=== PATIENT | female | born 1955 | race Caucasian/White ===

== ENCOUNTER 2016-04-24 17:10 | Emergency (ER) | payer OTHER ==
[~2016-04-24] VITALS: Ht 167.6 cm; Wt 72.6 kg
[2016-04-24 17:58] LABS: BASOPHILS # (AUTO) 0.1 /CMM (0.0-0.2); BASOPHILS % (AUTO) 1.1 % (0.0-2.0); DIFF TOTAL % 100 %; EOSINOPHILS # (AUTO) 0.2 /CMM (0.0-0.7); EOSINOPHILS % (AUTO) 3.1 % (0.0-6.0); HEMATOCRIT 40 % (33-45); HEMOGLOBIN 13.3 g/dL (11.5-14.8); LYMPHOCYTES # (AUTO) 3.1 /CMM (0.8-4.8); LYMPHOCYTES % (AUTO) 43.3 % (20.0-44.0); MEAN CORPUSCULAR HEMOGLOBIN 28 PG (26.0-33.0); MEAN CORPUSCULAR HGB CONC 33 g/dl (31.0-36.0); MEAN CORPUSCULAR VOLUME 85 fL (82-100); MONOCYTES # (AUTO) 0.5 /CMM (0.1-1.30); NEUTROPHILS # (AUTO) 3.3 /CMM (1.8-8.9); NEUTROPHILS % (AUTO) 45.5 % (43.0-81.0); PLATELET COUNT (AUTO) 227 /CMM (150-450); RED BLOOD CELL COUNT(AUTO) 4.69 MIL/uL (4.0-5.2); WHITE BLOOD COUNT (AUTO) 7.2 K/uL (4.3-11.0)
[2016-04-24] MEDS ORDERED: NITROGLYCERIN PACKET 1 GM PACKET TD ONE (18:00)
[2016-04-24] MEDS ORDERED: ASPIRIN 325 MG TABLET PO ONE (18:00)
[2016-04-24] MEDS ORDERED: NITROGLYCERIN PACKET 1 GM PACKET ONE (18:07)
[2016-04-24] MEDS ORDERED: ASPIRIN 325 MG TABLET ONE (18:07)
[2016-04-24 18:09] LABS: ANION GAP 9 (5-14); CARBON DIOXIDE 29 mmol/L (21-32); CHLORIDE 106 mmol/L (98-107); CREATININE 0.8 mg/dL (0.6-1.3); GFR 73 mL/min (>60); GLUCOSE 157 mg/dL (74-106); POTASSIUM 4.4 mmol/L (3.5-5.1); SODIUM SERUM 140 mmol/L (136-145); UREA NITROGEN, BLOOD 20 mg/dL (7-18)
[2016-04-24 18:11] LABS: INR 0.94 (0.87-1.13); PROTHROMBIN TIME 9.9 SECS (9.5-12.7)
[2016-04-24 18:14] VITALS: BP 141/77
[2016-04-24 18:19] LABS: TROPONIN I < 0.017 ng/mL (0.00-0.056)
[2016-04-24] MEDS ORDERED: METF500T4 PO (18:44)
[2016-04-24] MEDS ORDERED: SITA50TA PO (18:44)
[2016-04-24] MEDS ORDERED: ATOR10TA PO (18:44)
[2016-04-24] MEDS ORDERED: AMLO5TAB2 PO (18:44)
[2016-04-24] MEDS ORDERED: HYDROCODONE/APAP 5/325MG 1 EACH TABLET ONE (19:50)
[2016-04-24] MEDS ORDERED: HYDROCODONE/APAP 5/325MG 1 EACH TABLET PO STA (19:58)
== END 2016-04-24 20:24 | disposition left against medical advice (07) ==
LOC: ER 17:13 → UNDOADMIN 19:19 → TELE1 19:19
DX: R07.9 Chest pain, unspecified (principal); E86.0 Dehydration; E11.9 Type 2 diabetes mellitus without complications; I10 Essential (primary) hypertension; M19.90 Unspecified osteoarthritis, unspecified site; F17.200 Nicotine dependence, unspecified, uncomplicated
CPT/HCPCS: 36415; 71010-TC; 80048-TC; 84484-TC; 85025-TC; 85730-TC; A4606; Z7610

== ENCOUNTER 2017-06-26 20:51 | Emergency (ER) | payer OTHER ==
[~2017-06-26] VITALS: Ht 170.2 cm; Wt 72.6 kg
[~2017-06-26 20:51] MED LIST: AMLO5TAB7 PO; ATOR10TA PO; METF-440 PO; SITA50TA PO
--- NOTE | 2017-06-26 20:59 | NUR ---
PT BB DAUGHTER FROM HOME C/O "RT SIDE ABD PAIN RADIATING TO BACK SINCE YESTERDAY MORNING". PT STATES PAIN 10/10 RADIATING TO BACK SHOULDER BLADES. PT DENIES N/V/D. SKIN WNL. PT AAOX4. STEADY GAIT NOTED WHILE PT AMBULATED TO ER BED 6. NO S/S OF ACUTE DISTRESS NOTED. RESP EVEN AND UNLABORED.VSS. PT SAFETY AND COMFORT MEASURES IN PLACE. PT PLACED IN GOWN AND ON MONITOR AND POX. AWAITING MD FOR EVAL.
[2017-06-26] MEDS ORDERED: METOCLOPRAMIDE HCL 10 MG TABLET ONE (21:13)
[2017-06-26] MEDS ORDERED: MAG HYDROX/AL HYDROX/SIMETH 30 ML UDC ONE (21:13)
[2017-06-26] MEDS ORDERED: FAMOTIDINE/PF INJ 20 MG/2 ML VIAL IV ONE (21:14)
[2017-06-26 21:25] LABS: BASOPHILS # (AUTO) 0.1 /CMM (0.0-0.2); BASOPHILS % (AUTO) 1.3 % (0.0-2.0); EOSINOPHILS % (AUTO) 2.8 % (0.0-6.0); HEMATOCRIT 37 % (33-45); LYMPHOCYTES # (AUTO) 3.2 /CMM (0.8-4.8); LYMPHOCYTES % (AUTO) 43.2 % (20.0-44.0); MEAN CORPUSCULAR HGB CONC 35 g/dl (31.0-36.0); MEAN CORPUSCULAR VOLUME 85 fL (82-100); MONOCYTES # (AUTO) 0.6 /CMM (0.1-1.30); MONOCYTES % (AUTO) 8.4 % (2.0-12.0); NEUTROPHILS # (AUTO) 3.3 /CMM (1.8-8.9); NEUTROPHILS % (AUTO) 44.3 % (43.0-81.0); PLATELET COUNT (AUTO) 257 /CMM (150-450); RDW COEFFICIENT OF VARIATION 12.3 (11.5-15.0); RED BLOOD CELL COUNT(AUTO) 4.37 MIL/uL (4.0-5.2); WHITE BLOOD COUNT (AUTO) 7.4 K/uL (4.3-11.0)
[2017-06-26] MEDS: IV NS 0.9% 1,000 ML BAG IV ONE (21:30)
--- NOTE | 2017-06-26 21:30 | NUR ---
RADIOLOGY BEDSIDE FOR X-RAY
[2017-06-26] MEDS: FAMOTIDINE/PF INJ 20 MG/2 ML VIAL IV ONE (21:32)
[2017-06-26] MEDS: METOCLOPRAMIDE HCL 10 MG TABLET PO ONE (21:33)
[2017-06-26] MEDS: MAG HYDROX/AL HYDROX/SIMETH 30 ML UDC PO ONE (21:33)
[2017-06-26 21:35] LABS: CALCIUM, SERUM 8.8 mg/dL (8.5-10.1); POTASSIUM 4.6 mmol/L (3.5-5.1)
--- NOTE | 2017-06-26 21:37 | NUR ---
RADIOLOGY OUT OF PT'S ROOM.
[2017-06-26 21:41] LABS: ALBUMIN 3.4 g/dL (3.4-5.0); BILIRUBIN,DIRECT 0.1 mg/dL (0.0-0.2); BILIRUBIN,TOTAL 0.4 mg/dL (0.2-1.0); TOTAL PROTEIN, SERUM 7.3 g/dL (6.4-8.2)
--- NOTE | 2017-06-26 22:55 | NUR ---
Patient discharged to home in stable condition. Written and verbal after care instructions given. Patient verbalizes understanding of instruction.IV removed. Catheter intact and site benign. Pressure and 4x4 applied to site. No bleeding noted. VSS upon discharge
[2017-06-26 22:56] VITALS: BP 128/88
== END 2017-06-26 22:57 | disposition home or self-care (01) ==
LOC: ER 20:55
DX: R10.13 Epigastric pain (principal); R11.0 Nausea; I10 Essential (primary) hypertension; M19.90 Unspecified osteoarthritis, unspecified site; E11.9 Type 2 diabetes mellitus without complications; F17.200 Nicotine dependence, unspecified, uncomplicated; Z79.84 Long term (current) use of oral hypoglycemic drugs; Z98.890 Other specified postprocedural states
CPT/HCPCS: 36415; 71045-TC; 76705-TC; 80048-TC; 80076-TC; 85025-TC; A4606; J3490; J8597; Z7610

== ENCOUNTER 2019-04-25 20:35 | Emergency (ER) | payer OTHER ==
[~2019-04-25] VITALS: Ht 162.6 cm; Wt 68.9 kg
[~2019-04-25 20:35] MED LIST changes: -AMLO5TAB7 PO; +AMLO5TAB9 PO
[2019-04-25] MEDS ORDERED: HYDROCODONE/APAP 5/325MG 1 EACH TABLET ONE (21:50)
[2019-04-25] MEDS ORDERED: IBUPROFEN 600 MG TABLET PO ONE ×2 (21:50→22:00)
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
--- NOTE | 2019-04-25 21:59 | NUR ---
XRAY AT BEDSIDE
[2019-04-25] MEDS ORDERED: HYDROCODONE/APAP 5/325MG 1 EACH TABLET PO ONE (22:00)
--- NOTE | 2019-04-25 22:55 | NUR ---
EMT AT BEDSIDE FOR R 2ND DIGIT NAKIA TAPE TO DIGIT 1, CAST SHOEALSO DISPENSED TO PT PER ORDER
--- NOTE | 2019-04-25 23:05 | NUR ---
Patient discharged to home in stable condition. Written and verbal after care instructions given. Patient verbalizes understanding of instruction. Pt ambulatory with a steady gait.
[2019-04-25 23:18] VITALS: BP 138/88
== END 2019-04-25 23:18 | disposition home or self-care (01) ==
LOC: ER 20:44
DX: S92.521A Displaced fracture of middle phalanx of right lesser toe(s), initial encounter for closed fracture (principal); I10 Essential (primary) hypertension; E11.9 Type 2 diabetes mellitus without complications; M19.90 Unspecified osteoarthritis, unspecified site; F17.200 Nicotine dependence, unspecified, uncomplicated; Z98.890 Other specified postprocedural states; Z79.899 Other long term (current) drug therapy; Z79.84 Long term (current) use of oral hypoglycemic drugs; W22.8XXA Striking against or struck by other objects, initial encounter; Y93.89 Activity, other specified; Y92.89 Other specified places as the place of occurrence of the external cause; Y99.8 Other external cause status
CPT/HCPCS: 73660-TC

== ENCOUNTER 2021-01-19 16:21 | Emergency (ER) | payer OTHER ==
[~2021-01-19] VITALS: Ht 160 cm; Wt 70.3 kg
[~2021-01-19 16:21] MED LIST changes: +AMLO-212 PO; -AMLO5TAB9 PO
--- NOTE | 2021-01-19 16:28 | NUR ---
TO ER BED 9 FOR EVAL AND TREATMENT OF LEFT SIDED CHEST PAIN THAT STARTED LAST NIGHT,MONITORED,EKG READY FOR MD BETTENCOURT
--- NOTE | 2021-01-19 16:47 | NUR ---
STARTED IV LINE, BLOOD SPECIMEN COLLECTED AND SENT TO THE LAB. THE LINE IS SALINE LOCKED.
[2021-01-19 17:09] LABS: BASOPHILS # (AUTO) 0.1 K/uL (0.0-0.2); BASOPHILS % (AUTO) 1.2 % (0.0-2.0); EOSINOPHILS % (AUTO) 3.3 % (0.0-6.0); HEMATOCRIT 38 % (33-45); HEMOGLOBIN 12.6 g/dL (11.5-14.8); LYMPHOCYTES # (AUTO) 2.7 K/uL (0.8-4.8); LYMPHOCYTES % (AUTO) 41.4 % (20.0-44.0); MEAN CORPUSCULAR HGB CONC 33 g/dl (31.0-36.0); MEAN CORPUSCULAR VOLUME 88 fL (82-100); MONOCYTES # (AUTO) 0.5 K/uL (0.1-1.30); MONOCYTES % (AUTO) 7.9 % (2.0-12.0); NEUTROPHILS % (AUTO) 46.2 % (43.0-81.0); PLATELET COUNT (AUTO) 283 K/uL (150-450); RED BLOOD CELL COUNT(AUTO) 4.31 MIL/uL (4.0-5.2); WHITE BLOOD COUNT (AUTO) 6.5 K/uL (4.3-11.0)
--- NOTE | 2021-01-19 17:12 | NUR ---
TAKEN TO CT
--- NOTE | 2021-01-19 17:18 | NUR ---
MOVE SHEET SUBMITTED.
--- NOTE | 2021-01-19 17:20 | NUR ---
COVID SWAB COLLECTED AND SENT TO LAB
--- NOTE | 2021-01-19 17:22 | NUR ---
THE PATIENT IS BACK FROM CT
[2021-01-19 17:31] LABS: ALANINE AMINOTRANSFERASE 32 U/L (12-78); ALBUMIN 3.7 g/dL (3.4-5.0); ALKALINE PHOSPHATASE 69 U/L (46-116); ASPARTATE AMINOTRANSFERASE 11 U/L (15-37); BILIRUBIN,DIRECT 0.1 mg/dL (0.0-0.2); BILIRUBIN,TOTAL 0.3 mg/dL (0.2-1.0); CALCIUM, SERUM 8.7 mg/dL (8.5-10.1); CARBON DIOXIDE 25 mmol/L (21-32); CHLORIDE 104 mmol/L (98-107); CREATININE 0.9 mg/dL (0.6-1.3); GLUCOSE 188 mg/dL (74-106); POTASSIUM 4.1 mmol/L (3.5-5.1); SODIUM SERUM 138 mmol/L (136-145); TOTAL PROTEIN, SERUM 7.7 g/dL (6.4-8.2); UREA NITROGEN, BLOOD 18 mg/dL (7-18)
[2021-01-19] MEDS ORDERED: MAGN400T26 PO (18:08)
[2021-01-19] MEDS ORDERED: LORA10TA7 PO (18:08)
[2021-01-19] MEDS ORDERED: ALOG25TA2 PO (18:08)
[2021-01-19] MEDS ORDERED: TRAZ150T75 PO (18:08)
[2021-01-19] MEDS ORDERED: PANT40TA49 PO (18:08)
[2021-01-19] MEDS ORDERED: ASPI-1420 PO (18:08)
[2021-01-19] MEDS ORDERED: OMEG-72 PO (18:08)
[2021-01-19] MEDS ORDERED: VALS1TAB8 PO (18:08)
--- NOTE | 2021-01-19 19:15 | NUR ---
REPORT GIVEN TO NURSE SULTANA FOR DAMARIS
[2021-01-19] MEDS ORDERED: ASPIRIN 325 MG TABLET PO ONE (19:30)
[2021-01-19] MEDS ORDERED: NITROGLYCERIN PACKET 1 GM PACKET TOP ONE (19:30)
[2021-01-19] MEDS ORDERED: NITROGLYCERIN PACKET 1 GM PACKET ONE (19:59)
[2021-01-19] MEDS ORDERED: ASPIRIN 325 MG TABLET ONE (19:59)
--- NOTE | 2021-01-19 20:04 | NUR ---
CALLED [facility]SE [facility] FOR TELE BED
--- NOTE | 2021-01-19 20:33 | NUR ---
REPORT GIVEN TO LISA DODSON
[2021-01-19] MEDS ORDERED: ONDANSETRON HCL/PF 4 MG/2 ML VIAL IVP PRN (21:00)
[2021-01-19] MEDS ORDERED: MAGNESIUM HYDROXIDE 30 ML UDC PO PRN (21:00)
[2021-01-19] MEDS ORDERED: MAG HYDROX/AL HYDROX/SIMETH 30 ML UDC PO PRN (21:00)
[2021-01-19] MEDS ORDERED: Z GUARD REMEDY 2 OZ OINT TP PRN (21:00)
[2021-01-19] MEDS ORDERED: ACETAMINOPHEN 325 MG TABLET PO PRN (21:00)
[2021-01-19] MEDS ORDERED: ZOLPIDEM TARTRATE 5 MG TABLET PO PRN (21:00)
--- NOTE | 2021-01-19 21:23 | NUR ---
Patient does not wish to proceed with medical care recommended by Dr. PATRICK. Patient given information related to possible complications, up to and including , which could occur as a result of leaving the hospital at this time. Patient verbalizes understanding of risks involved due to leaving against medical advice. Patient has signed AMA form.
[2021-01-19 21:25] VITALS: BP 114/70
== END 2021-01-19 21:27 | disposition left against medical advice (07) ==
LOC: ER 16:47 → TELE 20:18 → UNDOADMIN 20:18
DX: R07.9 Chest pain, unspecified (principal); R51.9 Headache, unspecified; Z53.29 Procedure and treatment not carried out because of patient's decision for other reasons; Z20.822 Contact with and (suspected) exposure to COVID-19; E11.9 Type 2 diabetes mellitus without complications; I10 Essential (primary) hypertension; F17.200 Nicotine dependence, unspecified, uncomplicated; Z79.899 Other long term (current) drug therapy; Z79.82 Long term (current) use of aspirin; Z79.84 Long term (current) use of oral hypoglycemic drugs
CPT/HCPCS: 36415; 70450; 71045; 80048; 80076; 84484; 85025; 87426; 93005; 99285; C9803

== ENCOUNTER 2023-04-17 11:12 | Emergency (ER) | payer MEDICARE, OTHER ==
[~2023-04-17] VITALS: Ht 165.1 cm; Wt 64.9 kg
[~2023-04-17 11:12] MED LIST changes: +ALOG25TA2 PO; +ASPI-1420 PO; +LORA10TA7 PO; +MAGN400T26 PO; +OMEG-72 PO; +PANT40TA49 PO; -SITA50TA PO; +TRAZ150T75 PO; +VALS1TAB8 PO
[2023-04-17 12:39] LABS: BASOPHILS # (AUTO) 0.1 K/uL (0.0-0.2); BASOPHILS % (AUTO) 0.7 % (0.0-2.0); EOSINOPHILS # (AUTO) 0.2 K/uL (0.0-0.7); EOSINOPHILS % (AUTO) 2.2 % (0.0-6.0); HEMATOCRIT 41 % (33-45); HEMOGLOBIN 13.5 g/dL (11.5-14.8); LYMPHOCYTES # (AUTO) 2.5 K/uL (0.8-4.8); LYMPHOCYTES % (AUTO) 29.5 % (20.0-44.0); MEAN CORPUSCULAR HEMOGLOBIN 29 PG (26.0-33.0); MEAN CORPUSCULAR HGB CONC 33 g/dl (31.0-36.0); MEAN CORPUSCULAR VOLUME 87 fL (82-100); MONOCYTES # (AUTO) 0.8 K/uL (0.1-1.30); MONOCYTES % (AUTO) 9.8 % (2.0-12.0); NEUTROPHILS # (AUTO) 4.9 K/uL (1.8-8.9); NEUTROPHILS % (AUTO) 57.8 % (43.0-81.0); PLATELET COUNT (AUTO) 278 K/uL (150-450); RED BLOOD CELL COUNT(AUTO) 4.65 MIL/uL (4.0-5.2); RED CELL DISTRIBUTION WIDTH 13.7 % (11.5-15.0); WHITE BLOOD COUNT (AUTO) 8.5 K/uL (4.3-11.0)
[2023-04-17 13:24] LABS: CALCIUM, SERUM 9.6 mg/dL (8.5-10.1); CARBON DIOXIDE 24 mmol/L (21-32); CHLORIDE 105 mmol/L (98-107); CREATININE 0.8 mg/dL (0.6-1.3); GLUCOSE 111 mg/dL (74-106); POTASSIUM 4.8 mmol/L (3.5-5.1); SODIUM SERUM 137 mmol/L (136-145); UREA NITROGEN, BLOOD 23 mg/dL (7-18)
[2023-04-17 13:37] LABS: NT-PRO BNP 52 pg/mL (0-125)
[2023-04-17] MEDS ORDERED: ASPIRIN 81 MG TAB.CHEW ONE (13:47)
[2023-04-17] MEDS ORDERED: ERGO500093 PO (13:57)
[2023-04-17] MEDS ORDERED: DAPA10TA PO (13:57)
[2023-04-17] MEDS ORDERED: LINA5TAB PO (13:57)
[2023-04-17] MEDS ORDERED: SEMA1PEN SQ (13:57)
[2023-04-17] MEDS ORDERED: ALEN70TA3 PO (13:57)
[2023-04-17] MEDS ORDERED: AMLO10TA4 PO (13:57)
[2023-04-17] MEDS ORDERED: ROSU40TA PO (13:57)
[2023-04-17] MEDS ORDERED: ASPIRIN 81 MG TAB.CHEW PO ONE (14:00)
[2023-04-17] MEDS ORDERED: IV NS 0.9% 250 ML IV ONE (14:16)
[2023-04-17] MEDS ORDERED: IOHEXOL-350 100 ML VIAL IV ONE (14:16)
[2023-04-17 19:41] VITALS: BP 144/69; TEMP 98; O2SAT 98
== END 2023-04-17 19:42 | disposition left against medical advice (07) ==
LOC: ER 11:18
DX: R07.9 Chest pain, unspecified (principal); J06.9 Acute upper respiratory infection, unspecified; I10 Essential (primary) hypertension; E78.00 Pure hypercholesterolemia, unspecified; E11.9 Type 2 diabetes mellitus without complications; F17.200 Nicotine dependence, unspecified, uncomplicated; Z79.84 Long term (current) use of oral hypoglycemic drugs; Z79.899 Other long term (current) drug therapy; Z20.822 Contact with and (suspected) exposure to COVID-19
CPT/HCPCS: 99285; 71275; 71045; 87426; 93005; 85025; 80048; 85378; 36415; 84484 ×2; 83880; J7050; Q9967